=== PATIENT | female | born 1940 | race Two or more races ===

== ENCOUNTER 2020-11-05 21:23 | Emergency (ER) | payer MEDICARE, OTHER ==
[~2020-11-05] VITALS: Ht 162.6 cm; Wt 54.4 kg
--- NOTE | 2020-11-05 21:30 | NUR ---
PATIENT [id number] FROM HOME C/O CHILLS, NO FEVER. PATIENT WAS SEEN AT [facility] LAST NIGHT. PATIETN IS A/OX4, RR EVEN AND UNLABORED, NO SOB NOTED. PATIENT CONNECTED TO MONITOR.
--- NOTE | 2020-11-05 22:45 | NUR ---
Patient does not wish to proceed with medical care recommended by Dr. Pena . Patient given information related to possible complications, up to and including , which could occur as a result of leaving the hospital at this time. Patient verbalizes understanding of risks involved due to leaving against medical advice. Patient has signed AMA form.
[2020-11-05 23:06] VITALS: BP 128/64
== END 2020-11-05 23:08 | disposition left against medical advice (07) ==
LOC: ER 21:25
DX: R68.83 Chills (without fever) (principal)

== ENCOUNTER 2024-09-19 04:23 | Emergency (ER) | payer MEDICARE, OTHER ==
[~2024-09-19] VITALS: Ht 167.6 cm; Wt 68.0 kg
[2024-09-19] MEDS ORDERED: ACETAMINOPHEN 325 MG TABLET ONE ×2 (05:15→08:29)
[2024-09-19] MEDS: ACETAMINOPHEN 325 MG TABLET PO ONE ×2 (05:21→08:36)
[2024-09-19] MEDS ORDERED: BACLOFEN (10 MG) 10 MG TABLET ONE (05:24)
[2024-09-19] MEDS: BACLOFEN (10 MG) 10 MG TABLET PO ONE (05:28)
[2024-09-19 05:33] LABS: BASOPHILS % (AUTO) 0.7 % (0.0-2.0); EOSINOPHILS # (AUTO) 0.1 K/uL (0.0-0.7); EOSINOPHILS % (AUTO) 1.7 % (0.0-6.0); HEMATOCRIT 35 % (33-45); HEMOGLOBIN 11.8 g/dL (11.5-14.8); LYMPHOCYTES # (AUTO) 1.1 K/uL (0.8-4.8); LYMPHOCYTES % (AUTO) 23.5 % (20.0-44.0); MEAN CORPUSCULAR HEMOGLOBIN 36 PG (26.0-33.0); MEAN CORPUSCULAR HGB CONC 34 g/dl (31.0-36.0); MEAN CORPUSCULAR VOLUME 106 fL (82-100); MONOCYTES # (AUTO) 0.4 K/uL (0.1-1.30); MONOCYTES % (AUTO) 8.9 % (2.0-12.0); NEUTROPHILS # (AUTO) 2.9 K/uL (1.8-8.9); NEUTROPHILS % (AUTO) 65.2 % (43.0-81.0); PLATELET COUNT (AUTO) 181 K/uL (150-450); RED BLOOD CELL COUNT(AUTO) 3.26 MIL/uL (4.0-5.2); RED CELL DISTRIBUTION WIDTH 14.9 % (11.5-15.0); WHITE BLOOD COUNT (AUTO) 4.5 K/uL (4.3-11.0)
[2024-09-19 06:17] LABS: BILIRUBIN,DIRECT 0.1 mg/dL (0.0-0.2); BILIRUBIN,TOTAL 0.5 mg/dL (0.2-1.0); CALCIUM, SERUM 9.7 mg/dL (8.5-10.1); CREATININE 1.1 mg/dL (0.6-1.3); GLUCOSE 88 mg/dL (74-106); UREA NITROGEN, BLOOD 27 mg/dL (7-18)
[2024-09-19 06:18] LABS: ALANINE AMINOTRANSFERASE 26 U/L (12-78); ALBUMIN 3.5 g/dL (3.4-5.0); ALKALINE PHOSPHATASE 97 U/L (46-116); ASPARTATE AMINOTRANSFERASE 21 U/L (15-37); TOTAL PROTEIN, SERUM 6.8 g/dL (6.4-8.2)
[2024-09-19 06:19] LABS: CARBON DIOXIDE 31 mmol/L (21-32); CHLORIDE 107 mmol/L (98-107); POTASSIUM 3.7 mmol/L (3.5-5.1); SODIUM SERUM 143 mmol/L (136-145)
[2024-09-19] MEDS: IV NS 0.9% 500 ML BAG IV ONE (06:39)
[2024-09-19 11:15] VITALS: BP 135/73; TEMP 98.6; O2SAT 100
== END 2024-09-19 11:17 | disposition home or self-care (01) ==
LOC: ER 04:34
DX: M54.2 Cervicalgia (principal); R07.89 Other chest pain; M79.602 Pain in left arm; Z88.0 Allergy status to penicillin; Z88.2 Allergy status to sulfonamides
CPT/HCPCS: 36415; 71045-TC; 73090-TC; 80048-TC; 80076-TC; 84484-TC; 85025-TC